=== PATIENT | female | born 1980 | race Hispanic/Latino ===

== ENCOUNTER 2017-07-19 20:22 | Emergency (ER) | payer BC ==
[~2017-07-19 20:22] MED LIST: NORG1TAB5 PO; RIZA10TA29 PO; TOPI15CA7 PO; TYL3 PO
[2017-07-19] MEDS ORDERED: DEXAMETHASONE SOD PHOSPHATE 4 MG/ML 1ML VIAL ONE (20:42)
[2017-07-19] MEDS ORDERED: METHYLPREDNISOLONE SOD SUCC 40MG/ML 1ML ONE (20:42)
[2017-07-19] MEDS ORDERED: ONDANSETRON ODT 4 MG TAB ONE (20:43)
[2017-07-19] MEDS ORDERED: ACETAMINOPHEN-CODEINE ELIXIR 5 ML UDCUP ONE (20:43)
[2017-07-19] MEDS ORDERED: KETOROLAC TROMETHAMINE 30MG/ML ONE (20:43)
[2017-07-19 21:07] LABS: BASOPHILS % (AUTO) 1.5 % (0.0-5.0); EOSINOPHILS % (AUTO) 1.4 % (0.0-8.0); HEMATOCRIT 38.9 % (36-48); LYMPHOCYTES % (AUTO) 27.7 % (21.0-51.0); MEAN CORPUSCULAR HEMOGLOBIN 29.5 pg (27.0-33.0); MEAN CORPUSCULAR VOLUME 86.8 fL (79-99); MONOCYTES % (AUTO) 5.7 % (3.0-13.0); NEUTROPHILS % (AUTO) 63.7 % (40.0-77.0); PLATELET COUNT (AUTO) 370 K/uL (130-400); RED BLOOD CELL COUNT(AUTO) 4.49 MIL/uL (4.00-5.50); RED CELL DISTRIBUTION WIDTH 13.1 % (11.0-15.5); WHITE BLOOD COUNT (AUTO) 9.7 K/uL (4.8-10.8)
== END 2017-07-19 21:38 | disposition home or self-care (01) ==
LOC: EDH 20:22
DX: G43.709 Chronic migraine without aura, not intractable, without status migrainosus (principal); J30.9 Allergic rhinitis, unspecified
CPT/HCPCS: 36415; 70450; 85025; 96372 ×3; 99285; J1100; J1885; J2920

== ENCOUNTER 2018-09-07 10:49 | Observation (INO) | payer BC ==
[2018-09-07 11:58] LABS: APPEARANCE,URINE Clear (CLEAR); BILIRUBIN,URINE Negative (NEGATIVE); COLOR,URINE Yellow (YELLOW); GLUCOSE, URINE (UA) Negative (NEGATIVE); KETONES,URINE 15 mg/dL (NEGATIVE); LEUKOCYTE ESTERASE ,URINE Trace (NEGATIVE); NITRATE,URINE Negative (NEGATIVE); OCCULT BLOOD,URINE Negative (NEGATIVE); PH,URINE 6.5 (5.0-8.0); PROTEIN,URINE Negative (NEGATIVE)
[2018-09-07 12:06] LABS: BACTERIA,URINE Few /HPF (None Seen); MUCUS,URINE Rare LPF (None Seen); RBC,URINE 0-1 /HPF (0-1); SQUAMOUS EPITHELIAL CELL,UR Few /HPF (0-2)
== END 2018-09-08 10:04 | disposition home or self-care (01) ==
LOC: EDH 10:49 → LDH 10:57
PROVIDERS: ADMIT Obstetrics & Gynecology; ATTEND Obstetrics & Gynecology
DX: O26.893 Other specified pregnancy related conditions, third trimester (principal); R10.9 Unspecified abdominal pain; O9A.213 Injury, poisoning and certain other consequences of external causes complicating pregnancy, third trimester; W01.0XXA Fall on same level from slipping, tripping and stumbling without subsequent striking against object, initial encounter; Y93.89 Activity, other specified; Y92.89 Other specified places as the place of occurrence of the external cause; Y99.8 Other external cause status; Z3A.33 33 weeks gestation of pregnancy
CPT/HCPCS: 59025; 76805; 81001; 99283; G0378 ×23

== ENCOUNTER 2019-05-25 21:53 | Emergency (ER) | payer BC ==
[~2019-05-25 21:53] MED LIST changes: -RIZA10TA29 PO; +RIZA10TA98 PO; +TOPI15CA11 PO; -TOPI15CA7 PO
[2019-05-25 23:01] LABS: BILIRUBIN,URINE Negative (NEGATIVE); GLUCOSE, URINE (UA) Negative (NEGATIVE); KETONES,URINE Negative (NEGATIVE); LEUKOCYTE ESTERASE ,URINE Small (NEGATIVE); NITRATE,URINE Negative (NEGATIVE); OCCULT BLOOD,URINE Large (NEGATIVE); PH,URINE 7.5 (5.0-8.0); PROTEIN,URINE 300 mg/dL (NEGATIVE)
[2019-05-25 23:05] LABS: HCG,QUAL RESULT NEGATIVE (NEGATIVE)
[2019-05-25 23:06] LABS: APPEARANCE,URINE TURBID (CLEAR); COLOR,URINE RED (YELLOW); RBC,URINE TNTC /HPF (0-1)
[2019-05-25 23:07] LABS: BACTERIA,URINE Moderate /HPF (None Seen); MUCUS,URINE None Seen LPF (None Seen); WBC,URINE 26-50 /HPF (0-1)
[2019-05-25] MEDS ORDERED: LIDOCAINE HCL-MPF 1% 2ML VIAL ONE (23:42)
[2019-05-25] MEDS ORDERED: CEFTRIAXONE SODIUM 1 GM ONE (23:42)
[2019-05-25] MEDS ORDERED: PHENAZOPYRIDINE HCL 200 MG TABLET ONE (23:43)
== END 2019-05-26 00:06 | disposition home or self-care (01) ==
LOC: EDH 21:53
DX: N30.00 Acute cystitis without hematuria (principal); G43.909 Migraine, unspecified, not intractable, without status migrainosus; Z90.49 Acquired absence of other specified parts of digestive tract; Z98.51 Tubal ligation status
CPT/HCPCS: 81001; 81025; 87486; 87797; 96372; 99284; J0696; J3490